=== PATIENT | male | born 1970 | race Caucasian/White ===

== ENCOUNTER 2017-05-26 19:55 | Emergency (ER) | payer MEDICARE, MEDICAID ==
[2017-05-26 23:48] LABS: ABSOLUTE BASOPHILS # (AUTO) 0.1 10^3/uL (0.0-0.2); ABSOLUTE EOSINOPHILS # (AUTO) 0.2 10^3/uL (0.0-0.6); ABSOLUTE MONOCYTES (AUTO) 0.5 10^3/uL (0.1-1.4); ABSOLUTE NEUT (AUTO) 3.7 10^3/uL (1.7-8.2); BASOPHILS % (AUTO) 0.8 % (0-2); EOSINOPHILS % (AUTO) 3.1 % (0-6); HEMATOCRIT 34.8 % (37.9-51.0); HGB HCT DIFFERENCE 1.2; MEAN CORPUSCULAR HGB CONC 34.6 g/dL (32.0-36.0); MEAN CORPUSCULAR VOLUME 90 fl (80-97); MONOCYTES % (AUTO) 7.8 % (3-13); RED BLOOD COUNT 3.88 10^6/uL (4.35-5.55); RED CELL DISTRIBUTION WIDTH 12.8 % (11.5-14.0); SEGMENTED NEUTROPHILS % (AUTO) 57.3 % (42-78); WHITE BLOOD COUNT 6.5 10^3/uL (4.0-10.5)
[2017-05-26 23:59] LABS: ALANINE AMINOTRANSFERASE 45 U/L (21-72); ALBUMIN 3.9 g/dL (3.5-5.0); ALKALINE PHOSPHATASE 65 U/L (38-126); ANION GAP 10 (5-19); ASPARTATE AMINO TRANSFERASE 23 U/L (17-59); BILIRUBIN,DIRECT 0.3 mg/dL (0.0-0.4); BILIRUBIN,TOTAL 0.5 mg/dL (0.2-1.3); BLOOD UREA NITROGEN 10 mg/dL (7-20); CALCIUM 9.4 mg/dL (8.4-10.2); CARBON DIOXIDE 27 mmol/L (22-30); CHLORIDE 105 mmol/L (98-107); CREATINE KINASE 121 U/L (55-170); CREATININE RESULT 0.79 mg/dL (0.52-1.25); GLUCOSE 103 mg/dL (75-110); POTASSIUM 4.3 mmol/L (3.6-5.0); SODIUM 141.9 mmol/L (137-145); TOTAL PROTEIN 6.4 g/dL (6.3-8.2)
[2017-05-27 00:10] LABS: CREATINE KINASE MB 1.23 ng/mL (<4.55)
[2017-05-27 00:15] LABS: TROPONIN I 0.035 ng/mL
[2017-05-27] MEDS ORDERED: NITROGLYCERIN 2% OINTMENT 1 GM PACKET TP ONE ×2 (00:48→01:15)
--- NOTE | 2017-05-27 00:50 | ER Document Report ---
ED Cardiac - General Chief Complaint: Chest Pain Stated Complaint: CHEST PAIN Time Seen by Provider: 05/27/17 00:14 Notes: Patient is a 46-year-old male who presents emergency department complaining of chest pain and chest pressure. Patient's history is a little unclear. He reported to me that his chest pain started approximately an hour after lunch but he told triage and nursing staff here that it started about 7 PM. At this time he states that he has still has chest pressure without any radiation into his neck, back, abdomen. Denies any nausea, vomiting, abdominal pain, diarrhea or constipation. Denies any shortness of breath, cough, difficulty breathing, pleurisy. Denies any fevers or chills. Patient is a history of high blood pressure but denies any history of heart attack, hyperlipidemia, diabetes. Patient is a non-smoker Denies any history of cath or stress test. Patient is on IVC papers of [id number]. TRAVEL OUTSIDE OF THE [place] IN LAST 30 DAYS: No Past Medical History - Social History Smoking Status: Former Smoker Family History: Reviewed & Not Pertinent Patient has suicidal ideation: No Patient has homicidal ideation: No Renal/ Medical History: Denies: Hx Peritoneal Dialysis Review of Systems - Review of Systems Constitutional: No symptoms reported Cardiovascular: See HPI Respiratory: No symptoms reported Gastrointestinal: No symptoms reported Neurological/Psychological: See HPI, Headaches Physical Exam - Vital signs Vitals: Temp Pulse Resp BP Pulse Ox 98.4 F 93 18 116/65 96 05/26/17 20:07 05/26/17 20:07 05/26/17 20:07 05/26/17 20:07 05/26/17 20:07 - Notes Notes: PHYSICAL EXAM GENERAL: Alert, interacts well. HEAD: Normocephalic, atraumatic. EYES: Pupils equal, round, and reactive to light. Extraocular movements intact. ENT: Oral mucosa moist, tongue midline. NECK: Full range of motion. Supple. Trachea midline. LUNGS: Clear to auscultation bilaterally, no wheezes, rales, or rhonchi. No respiratory distress. HEART: Regular rate and rhythm. No murmurs, gallops, or rubs. ABDOMEN: Soft, nondistended, nontender. No guarding, rebound, or rigidity.. Bowel sounds present in all 4 quadrants. EXTREMITIES: Moves all 4 extremities spontaneously. No edema, radial and dorsalis pedis pulses 2/4 bilaterally. No cyanosis. NEUROLOGICAL: Alert and oriented x4. Normal speech. PSYCH: Normal affect, normal mood. SKIN: Warm, dry, normal turgor. No rashes or lesions noted. Course - Re-evaluation Re-evalutation: 05/27/17 01:36 The patient refused additional blood draws for repeat troponin and refused to take Tylenol for headache and demanding to leave. Upon reassessment. Patient states that he was chest pain-free and lied about chest pain earlier. Patient is refusing treatment. Patient is very well in appearance, vitals within normal limits. Low clinical suspicion for ACS given clinical history, exam, EKG without ST elevations or depressions, and negative initial troponin. HEART score less than or equal to 3. PE also seems unlikely given clinical history, absence of tachycardia or dyspnea. Well's score of 0. CXR without evidence of pneumothorax or pneumonia. No widened mediastinum. Aortic dissection also seems unlikely given history, symmetric pulses, CXR, and vitals. At this time will discharge with return precautions and follow-up recommendations. Verbal discharge instructions given a the bedside and opportunity for questions given. Medication warnings reviewed. Patient is in agreement with this plan and has verbalized understanding of return precautions and the need for primary care follow-up in the next 24-72 hours. - Vital Signs Vital signs: Temp Pulse Resp BP Pulse Ox 98.4 F 64 20 167/94 H 99 05/26/17 20:07 05/27/17 01:43 05/27/17 01:43 05/27/17 01:43 05/27/17 01:43 - Laboratory Result Diagrams: 05/26/17 23:32 05/26/17 23:32 Laboratory results interpreted by me: 05/26/17 23:32 RBC 3.88 L Hgb 12.0 L Hct 34.8 L - Diagnostic Test Radiology reviewed: Image reviewed, Reports reviewed - EKG Interpretation by [place] EKG shows normal: Sinus rhythm Rate: Normal Rhythm: NSR When compared to previous EKG there are: No significant change Discharge - Discharge Clinical Impression: Chest pain Condition: Good Disposition: HOME, SELF-CARE Additional Instructions: Patient medically cleared to return to [facility] CHEST PAIN OF UNCLEAR CAUSE: The exact cause of your chest pain isn't clear. Fortunately, there is no evidence of a dangerous medical condition. Further testing may be required to find the source of the pain. Most often, we find that this pain is coming from the chest wall -- the muscles or rib joints in the chest. But chest pain can come from the lung and lung lining, the esophagus, the heart valves or heart lining, and even the stomach or gallbladder. Rest. Eat lightly until the pain is gone. We may prescribe medicine for pain and inflammation. You should call the physician immediately if the pain radiates to the shoulder, jaw or arms; if you start to run a fever or develop a cough; or if you develop shortness of breath, or other new or alarming symptoms. NORMAL EXAM AND WORKUP: At this time, your examination and workup show no significant abnormality. No significant abnormal physical findings were noted. All laboratory, EKG, and imaging (x-ray, CT scans, ultrasound) studies that were ordered show no significant abnormality. Although your examination and all studies that were ordered showed no significant abnormal finding, there are no examinations and no studies that are 100% accurate. There is always the possibility that some abnormality could exist and not be detected with physical examination or within the limits and capabilities of laboratory and other studies. You should return or follow up as you were instructed on your visit today for further evaluation if your symptoms do not resolve. FOLLOW-UP CARE: If you have been referred to a physician for follow-up care, call the physician s office for an appointment as you were instructed or within the next two days. If you experience worsening or a significant change in your symptoms, notify the physician immediately or return to the Emergency Department at any time for re-evaluation.
[2017-05-27] MEDS ORDERED: ACETAMINOPHEN 325 MG TABLET PO ONE (01:03)
[2017-05-27] MEDS ORDERED: NITROGLYCERIN/D5W 50 MG/250 ML RTUINJ IV PRN (01:11)
[2017-05-27 02:07] VITALS: BP 167/94
--- NOTE | 2017-05-27 08:03 | EKG REPORT ---
SEVERITY:- NORMAL ECG - SINUS RHYTHM : Confirmed by: Jorge Garcia MD 27-May-2017 08:02:34
--- NOTE | 2017-05-27 08:03 | EKG REPORT ---
SEVERITY:- NORMAL ECG - SINUS RHYTHM : Confirmed by: Jorge Garcia MD 27-May-2017 08:02:51
--- NOTE | 2017-05-30 11:33 | RADIOLOGY REPORT (SQ) ---
EXAM DESCRIPTION: CHEST SINGLE VIEW COMPLETED DATE/TIME: 05/27/2017 12:05 am REASON FOR STUDY: CP COMPARISON: None. LIMITATIONS: None. FINDINGS: Adequate lung volumes, clear parenchyma, normal cardiac silhouette. Intact bony thorax. Mild levo convexity. Lower cervical hardware fusion. IMPRESSION: No acute cardiopulmonary findings. TECHNICAL DOCUMENTATION: JOB ID: [id number] [employer]- All Rights Reserved
== END 2017-05-27 01:43 | disposition home or self-care (01) ==
LOC: ER 19:55
DX: R07.89 Other chest pain (principal); R51 Headache; I10 Essential (primary) hypertension; Z87.891 Personal history of nicotine dependence
CPT/HCPCS: 93005 ×2; 99285; 36415; 82553 ×2; 82550 ×2; 85025; 80053; 84484 ×2; 71010; 93010 ×2; A9270

== ENCOUNTER 2019-10-27 16:36 | Emergency (ER) | payer MEDICARE, MEDICAID ==
--- NOTE | 2019-10-27 16:48 | ER Document Report ---
ED Medical Screen (RME) - General Chief Complaint: Medical Clearance Stated Complaint: MEDICAL CLEARANCE Time Seen by Provider: 10/27/19 16:42 Primary Care Provider: CHASE WALDROP NP [Primary Care Provider] - Follow up as needed Information source: Patient Notes: Patient presents requesting medical clearance for psychiatric placement. Patient states he has a history of PTSD, depression and schizophrenia and has been off of medications for several months. Patient reports occasional suicidal thoughts and occasional auditory and visual hallucinations. Patient states he has been using marijuana and meth although not recently. Patient does report previous suicide attempt in the past. [facility] I have greeted and performed a rapid initial assessment of this patient. A comprehensive ED assessment and evaluation of the patient, analysis of test results and completion of the medical decision making process will be conducted by additional ED providers. TRAVEL OUTSIDE OF THE U[place] IN LAST 30 DAYS: No - Related Data Allergies/Adverse Reactions: No Known Allergies Allergy (Unverified 10/27/19 16:44) Past Medical History Renal/ Medical History: Denies: Hx Peritoneal Dialysis Physical Exam - Vital signs Vitals: Temp Pulse Resp BP Pulse Ox 98.0 F 119 H 22 H 142/95 H 97 10/27/19 16:43 10/27/19 16:43 10/27/19 16:43 10/27/19 16:43 10/27/19 16:43 - Psychological Associated symptoms: Paranoid, Psychomotor agitation Course - Vital Signs Vital signs: Temp Pulse Resp BP Pulse Ox 98.0 F 119 H 22 H 142/95 H 97 10/27/19 16:43 10/27/19 16:43 10/27/19 16:43 10/27/19 16:43 10/27/19 16:43 Doctor's Discharge - Discharge Referrals: CHASE WALDROP NP [Primary Care Provider] - Follow up as needed
--- NOTE | 2019-10-27 17:17 | ER Document Report ---
ED Psych Disorder / Suicide <KLAUDIA CHAPMAN - Last Filed: 10/28/19 13:19> - General TRAVEL OUTSIDE OF THE U.S[place] IN LAST 30 DAYS: No <NADIA NAILS - Last Filed: 10/30/19 11:33> - General Chief Complaint: Psych Problem Stated Complaint: MEDICAL CLEARANCE Time Seen by Provider: 10/27/19 16:42 Primary Care Provider: CHASE WALDROP NP [Primary Care Provider] - Follow up as needed Notes: CHIEF COMPLAINT: Requesting medical clearance HPI: 48-year-old male with history of schizophrenia, chronic pain, glaucoma, hypertension, Hep C, depression, PTSD presenting to the emergency department for medical clearance. Patient states he does have history of substance abuse as well, has used methamphetamine and marijuana although states he has not used methamphetamine in the last month. Patient states that over the last month he has had some thoughts intermittently of hurting himself none in the last week. He has not made an attempt to harm himself. Denies overdosing on medications or alcohol. Patient denies headache chest pain shortness of breath abdominal pain nausea or vomiting. Patient states that over the last month he has had inc reasing paranoia with thoughts that people are out to get him. He specifically denies homicidal ideation at this time. Patient states that he knows that he needs to get help. States he has been off of medications for schizophrenia for a long time. States he had been on Haldol 5 mg daily which seemed to help. Patient states he is on gabapentin and Prozac currently and is taking those medications. Patient denies other complaints at this time ROS: See HPI - all other systems were reviewed and are otherwise negative Constitutional: no fever Eyes: no drainage, no blurred vision ENT: no runny nose, no sore throat Cardiovascular: no chest pain Resp: no SOB, no cough GI: no vomiting, no diarrhea, no abdominal pain : no dysuria Integumentary: no rash Allergy: no hives Musculoskeletal: no extremity pain or swelling Neurological: no numbness/tingling, no weakness MEDICATIONS: I agree with the patient medications as charted by the RN. ALLERGIES: I agree with the allergies as charted by the RN. PAST MEDICAL HISTORY/PAST SURGICAL HISTORY: Reviewed and agree as charted by RN. SOCIAL HISTORY: Reviewed and agree as charted by RN. FAMILY HISTORY: No significant familial comorbid conditions directly related to patient complaint EXAM: Reviewed vital signs as charted by RN. CONSTITUTIONAL: Alert and oriented and responds appropriately to questions. Well-appearing; well-nourished, appears older than stated age HEAD: Normocephalic; atraumatic EYES: PERRL; Conjunctivae clear, sclerae non-icteric ENT: normal nose; no rhinorrhea; moist mucous membranes; pharynx without lesions noted, no uvula edema or deviation, no tonsillar hypertrophy, phonation normal NECK: Supple without meningismus; non-tender; no cervical lymphadenopathy, no masses CARD: Tachycardic; no murmurs, no clicks, no rubs, no gallops; symmetric distal pulses RESP: Normal chest excursion without splinting or tachypnea; breath sounds clear and equal bilaterally; no wheezes, no rhonchi, no rales, pulse oximetry ABD/GI: Normal bowel sounds; non-distended; soft, non-tender, no rebound, no guarding; no palpable organomegaly or masses. BACK: The back appears normal and is non-tender to palpation, there is no CVA tenderness EXT: Normal ROM in all joints; non-tender to palpation; no cyanosis, no effusions, no edema SKIN: Normal color for age and race; warm; dry; good turgor; no acute lesions noted NEURO: Moves all extremities equally; Motor and sensory function intact PSYCH: The patient's mood and manner are appropriate. Grooming and personal hygiene are poor. MDM: 48-year-old male with schizophrenia history as well as PTSD and depression presenting for medical clearance. States he went to [facility] today and they did not have their physician and and told him to come to the hospital for medical clearance but they would have a bed for him. Psychiatric team has already left for the night and are unable to see the patient for evaluation. He is not actively suicidal or homicidal he verbalizes that he does not want to cause any problems but wants to get help. Medical screening lab work was ordered from triage protocol. Patient is aware that he may not be evaluated by psychiatric team tonight but may be evaluated tomorrow for placement once he is medically cleared (NADIA NAILS) - Related Data Allergies/Adverse Reactions: No Known Allergies Allergy (Unverified 10/27/19 16:44) Past Medical History - General Information source: Patient - Social History Smoking Status: Current Every Day Smoker Frequency of alcohol use: None Drug Abuse: Marijuana, Methamphetamine Family History: Reviewed & Not Pertinent Patient has suicidal ideation: Yes Patient has homicidal ideation: Yes Renal/ Medical History: Denies: Hx Peritoneal Dialysis <NADIA NAILS - Last Filed: 10/30/19 11:33> Physical Exam - Vital signs Vitals: Temp Pulse Resp BP Pulse Ox 98.0 F 119 H 22 H 142/95 H 97 10/27/19 16:43 10/27/19 16:43 10/27/19 16:43 10/27/19 16:43 10/27/19 16:43 Course - Laboratory Result Diagrams: 10/27/19 17:09 10/27/19 17:09 <KLAUDIA CHAPMAN - Last Filed: 10/28/19 13:19> - Laboratory Result Diagrams: 10/27/19 17:09 10/27/19 17:09 <NADIA NAILS - Last Filed: 10/30/19 11:33> - Re-evaluation Re-evalutation: 10/27/19 18:21 Patient's lab work does not show acute emergent abnormalities, he is positive for amphetamines although he had indicated to me that he had not used methamphetamine recently. Patient is otherwise medically cleared at this time his tachycardia is likely related to methamphetamine use (NADIA NAILS) - Vital Signs Vital signs: Temp Pulse Resp BP Pulse Ox 98.6 F 88 16 128/88 H 100 10/28/19 14:10 10/28/19 14:10 10/28/19 14:10 10/28/19 14:10 10/28/19 14:10 - Laboratory Laboratory results interpreted by me: 10/27/19 17:09 Carbon Dioxide 32 H Calcium 10.9 H AST 91 H Salicylates < 1.0 L Acetaminophen < 10 L Discharge <KLAUDIA CHAPMAN - Last Filed: 10/28/19 13:19> <NADIA NAILS - Last Filed: 10/30/19 11:33> - Discharge Clinical Impression: Drug abuse, Depression Condition: Stable Disposition: HOME, SELF-CARE Additional Instructions: You have been evaluated by both medical and behavioral health teams and have been deemed appropriate for discharge. You have elected to voluntarily seek tr eatment at [facility]. A one-time cab voucher is being provided to you to assist with transportation. You are encouraged to follow through with this treatment opportunity. You have also been provided with resource sheets for community outpatient mental health, a street sheet with community social resources, and a [employer] resource sheet. Post-Traumatic Stress Disorder You seem to have post-traumatic stress disorder (PTSD). PTSD can cause chronic anxiety, sleeping problems, social withdrawal, and drug abuse. It can occur following a traumatic personal experience such as an accident, rape, assault, or of a loved one, or after experiencing a war or natural disaster. Symptoms may be delayed for days or even years. Emotional numbing, the inability to express grief, is usually the earliest sign. There may be apathy or agitation, aggression, and inability to perform ordinary tasks. Often there are frightening nightmares and sudden, intruding memories of the trauma. Panic attacks and feelings of guilt are common. Alcohol and drug use make post- traumatic stress symptoms worse. Medication may be temporarily necessary to combat anxiety, panic attacks, and depression. Medicine should not be considered a "cure." You must deal with the trauma and prepare to go on. Group therapy is often helpful. This helps you "talk through" the problem with others who share your symptoms. We can provide you with an appropriate referral. AMPHETAMINE / METHAMPHETAMINE ABUSE: Amphetamines are addicting stimulants. Amphetamines overstimulate the nervous system and give a false feeling of power and mastery. These drugs may be obtained as prescription pills for weight loss, narcolepsy, or attention-deficit disorder. More often they're bought as an illegal street drug, methamphetamine (crank, crystal, speed). Using amphetamines repeatedly can lead to serious medical problems including malnutrition, severe depression, and paranoia. It can take increasing amounts to feel good. Eventually, there will be a "burn out." When you go off amphetamines there is a period of depression that may last for weeks or even m onths. High doses of amphetamines can cause seizures, confusion, hallucinations, delusions, high blood pressure, muscle damage, heart damage, or sudden . Many times these deadly complications occur even with "normal" doses. Injection of amphetamines is risky for developing abscesses, endocarditis (heart infection), pneumonia, and AIDS. Withdrawal from amphetamines often causes anxiety, depression, and drug cravings. Some users become paranoid and psychotic. There may be cramps, nausea, and vomiting. Many treatment programs are available, but you must make the decision to quit. Medication can be prescribed to control the symptoms of amphetamine toxicity (beta blockers or benzodiazepines). Withdrawal symptoms may require tranquilizers. AT ANY TIME, IF YOUR SYMPTOMS CHANGE SIGNIFICANTLY OR WORSEN OR YOU DEVELOP NEW SYMPTOMS, RETURN TO THE EMERGENCY DEPARTMENT IMMEDIATELY FOR RE-EVALUATION. Referrals: CHASE WALDROP NP [Primary Care Provider] - Follow up as needed
[2019-10-27] MEDS ORDERED: HALOPERIDOL 5 MG TABLET PO ONE (17:32)
[2019-10-27] MEDS ORDERED: KETOROLAC TROMETHAMINE 60 MG/2 ML SDV IM ONE (17:32)
[2019-10-27 17:38] LABS: ABSOLUTE BASOPHILS # (AUTO) 0.1 10^3/uL (0.0-0.2); ABSOLUTE EOSINOPHILS # (AUTO) 0.4 10^3/uL (0.0-0.6); ABSOLUTE LYMPHOCYTES (AUTO) 2.1 10^3/uL (0.5-4.7); ABSOLUTE MONOCYTES (AUTO) 0.7 10^3/uL (0.1-1.4); ABSOLUTE NEUT (AUTO) 4.4 10^3/uL (1.7-8.2); BASOPHILS % (AUTO) 0.8 % (0-2); EOSINOPHILS % (AUTO) 5.5 % (0-6); HEMATOCRIT 45.6 % (37.9-51.0); LYMPHOCYTES % (AUTO) 27.4 % (13-45); MEAN CORPUSCULAR HEMOGLOBIN 31.3 pg (27.0-33.4); MEAN CORPUSCULAR VOLUME 90 fl (80-97); MONOCYTES % (AUTO) 9.5 % (3-13); PLATELET COUNT 237 10^3/uL (150-450); RED BLOOD COUNT 5.09 10^6/uL (4.35-5.55); RED CELL DISTRIBUTION WIDTH 12.9 % (11.5-14.0); SEGMENTED NEUTROPHILS % (AUTO) 56.8 % (42-78); TOTAL CELLS COUNTED % (AUTO) 100 %; WHITE BLOOD COUNT 7.7 10^3/uL (4.0-10.5)
[2019-10-27 17:43] LABS: APPEARANCE,URINE CLEAR; BILIRUBIN,URINE NEGATIVE (NEGATIVE); COLOR,URINE YELLOW; GLUCOSE, URINE NEGATIVE (NEGATIVE); KETONES,URINE NEGATIVE (NEGATIVE); LEUKOCYTE ESTERASE,URINE NEGATIVE (NEGATIVE); NITRITE,URINE NEGATIVE (NEGATIVE); PROTEIN,URINE NEGATIVE (NEGATIVE); URINE SPECIFIC GRAVITY 1.019; UROBILINOGEN,URINE NEGATIVE mg/dL (<2.0)
[2019-10-27 17:48] LABS: ALBUMIN 4.3 g/dL (3.5-5.0); ALKALINE PHOSPHATASE 101 U/L (38-126); ANION GAP 8 (5-19); ASPARTATE AMINO TRANSFERASE 91 U/L (17-59); BILIRUBIN,TOTAL 0.7 mg/dL (0.2-1.3); BLOOD UREA NITROGEN 20 mg/dL (7-20); CALCIUM 10.9 mg/dL (8.4-10.2); CARBON DIOXIDE 32 mmol/L (22-30); CHLORIDE 102 mmol/L (98-107); GLUCOSE 101 mg/dL (75-110); POTASSIUM 4.9 mmol/L (3.6-5.0); TOTAL PROTEIN 7.3 g/dL (6.3-8.2)
[2019-10-27 17:51] LABS: ACETAMINOPHEN < 10 ug/mL (10-30); ALCOHOL < 10 mg/dL (NONE DETECTED); SALICYLATE < 1.0 mg/dL (2.0-20.0)
[2019-10-27 17:54] LABS: URINE BENZODIAZEPINES SCREEN NEGATIVE; URINE COCAINE SCREEN NEGATIVE; URINE MARIJUANA (THC) SCREEN NEGATIVE; URINE METHADONE SCREEN NEGATIVE; URINE PHENCYCLIDINE SCREEN NEGATIVE
[2019-10-27 18:01] LABS: URINE BARBITURATES SCREEN NEGATIVE
[2019-10-27 18:03] LABS: URINE AMPHETAMINES SCREEN UNCONFIRMED POSITIVE
--- NOTE | 2019-10-27 19:25 | EKG REPORT ---
SEVERITY:- ABNORMAL ECG - SINUS RHYTHM ANN MARIE, CONSIDER BIATRIAL ABNORMALITIES BORDERLINE T WAVE ABNORMALITIES : Confirmed by: Jackelyn Reina MD 27-Oct-2019 19:25:07
--- NOTE | 2019-10-28 07:33 | PSYCHOLOGICAL NOTE ---
Psych Note - Psych Note Date seen by psych provider: 10/28/19 Time seen by psych provider: 07:20 Psych Note: Clinician spoke with Angelique at [facility] who verified, per medical clearance, patient will have a bed at 12:00. Clinician faxed referral packet at 07:32. Angelique stated she will call when patient is accepted by [facility]'s admitting Doctor. Premjoyce called with acceptance at 12:26. Patient is a 30-year-old female who presents to ED via for medical clearance to enter treatment at [facility] for mental health and substance abuse concerns. Patient spoke of extensive struggles with substance use and mental health issues. Patient states he is more concerned with mental health issues. Patient reports mental health diagnosis of "Depression, Paranoid Schizophrenia, and BiPolar stuff." Patient reports delusions of paranoia (people are out to get me, people are out to hurt me). Patient denies current SI. Patient states he would never harm anyone unless in self defense. Patient reports an inpatient hospitalizations at [facility], [facility], and a few places in [place]. Patient reports symptoms have worsened since his fiance, who took care of him, in 2017. Patient states he is generally stable on medications. Patient states a lack of transportation is a factor that has prevented him engaging in mental health services. Discussed patient that inpatient is more of a band aid and that the responsibility is his to engage in this treatment opportunity to get stability, and then continue to work the treatment for self reliance. Patient verbalized understanding and was receptive. Patient is alert and oriented to person, place, time and circumstance. Mood is normal with congruent affect. Patient denies current suicidal and homicidal ideations. There is no observed behavior that suggests patient is responding to internal stimuli. Patient is able to engage in organzied, rational thought processes. Patient is able to express needs and wants in a logical manner. Patient denies current auditory and visual hallucinations. Eye contact is appro priate. Conversational speech is within normal rate, tone, and prosody. Intellectual ability appears to be within average range. Attention and concentration are good. Insight, judgment and impulse control are currently poor. Impression/Plan: Patient cleared from acute psychiatric services. Patient denies current suicidal and homicidal ideations. There is no observed behavior that suggests patient is responding to internal stimuli. Patient engaged in organized, rational, linear thought processes and was able to express needs and wants in a logical manner. Patient was accepted for voluntary treatment opportunity at [facility]. Patient was provided with a cab voucher to assist with transportation. Plan is for patient to voluntarily present to [facility] for treatment. Dr. Montanez was consulted on the care and management of this patient; attending physician is in agreement with recommendations and disposition.
--- NOTE | 2019-10-28 14:11 | ER Document Report ---
Doctor's Note Notes: 10/28/19 14:09 evaluated patient. Patient has no complaints at this time. Patient is to be given cab voucher to [facility] per psychiatric team. Nontoxic, well-appearing.
[2019-10-28 14:16] VITALS: BP 128/88
== END 2019-10-28 14:12 | disposition home or self-care (01) ==
LOC: ER 16:36
DX: F19.10 Other psychoactive substance abuse, uncomplicated (principal); D32.9 Benign neoplasm of meninges, unspecified; F17.200 Nicotine dependence, unspecified, uncomplicated; F20.9 Schizophrenia, unspecified; F43.10 Post-traumatic stress disorder, unspecified; G89.29 Other chronic pain; Z86.19 Personal history of other infectious and parasitic diseases
CPT/HCPCS: 93005; 99285; 96372; 36415; 80307 ×4; 85025; 80053; 81001; 93010; J1885; A9270